=== PATIENT | male | born 1975 | race Caucasian/White ===

== ENCOUNTER 2017-10-29 07:22 | Emergency (ER) | payer OTHER ==
[2017-10-29 07:33] VITALS: BP 119/75; PULSE 65; TEMP 100.2; BMI 28.7
--- NOTE | 2017-10-29 07:45 | PDOC ---
History of Present Illness - General Chief Complaint: Sore Throat Stated Complaint: FEVER, SORE THROAT Time Seen by Provider: 10/29/17 07:45 - History of Present Illness Initial Comments: 42 year old previously healthy male presenting with two days of fever and three days on non-productive cough. Denies nausea, vomiting, but had had some diarrhea. Has no recent travel/ sick contacts but does have two teenage children at home. His PCP is Rusty Walter and he follows up with him regularly. 10/29/17 09:04 Past History - Past Medical History Allergies/Adverse Reactions: Allergies Allergy/AdvReac Type Severity Reaction Status Date / Time No Known Allergies Allergy Verified 10/29/17 07:27 Home Medications: Ambulatory Orders Phenol [Chloraseptic] 1 spray MM BID PRN #1 bottle 10/29/17 COPD: No - Suicide/Smoking/Psychosocial Hx Smoking History: Never smoked Review of Systems - Review of Systems Constitutional: Yes: Fever. No: Chills, Diaphoresis, Loss of Appetite Respiratory: No: Cough, Shortness of Breath Cardiac (ROS): No: Chest Pain, Edema, Irregular Heart Rate ABD/GI: Yes: Diarrhea. No: Nausea, Vomiting : No: Burning, Dysuria, Discharge Musculoskeletal: No: Gout, Joint Pain, Joint Swelling Integumentary: No: Change in Color, Change in Hair/Nails, Lumps, Pruritus, Rash Neurological: No: Headache, Numbness, Paresthesia Hematologic/Lymphatic: No: Anemia, Blood Clots, Easy Bleeding *Physical Exam - Vital Signs Last Vital Signs Temp Pulse Resp BP Pulse Ox 100.2 F H 65 18 119/75 99 10/29/17 07:25 10/29/17 07:25 10/29/17 07:25 10/29/17 07:25 10/29/17 07:25 - Physical Exam General Appearance: Yes: Nourished, Appropriately Dressed. No: Apparent Distress HEENT: positive: EOMI, ANDRIA, Pharyngeal Erythema. negative: Normal ENT Inspection, Normal Voice (Poor quality voice with erythematous posterio pharynx) Neck: positive: Trachea midline, Normal Thyroid, Supple. negative: Tender, Rigid Respiratory/Chest: positive: Lungs Clear, Normal Breath Sounds. negative: Chest Tender, Respiratory Distress, Accessory Muscle Use Cardiovascular: positive: Regular Rhythm, Regular Rate Gastrointestinal/Abdominal: positive: Normal Bowel Sounds, Flat, Soft. negative : Tender Musculoskeletal: positive: Normal Inspection. negative: Decreased Range of Motion, Muscle Spasm Extremity: positive: Normal Capillary Refill, Normal Inspection, Normal Range of Motion. negative: Tender Integumentary: positive: Normal Color, Dry, Warm Neurologic: positive: Fully Oriented, Alert, Normal Mood/Affect, Normal Response , Motor Strength 5/5 Medical Decision Making - Medical Decision Making 42 year old male with no PMH presenting with sore throat, fevers, diarrhea, and non-productive cough for the past few days without history of travel or sick contacts. His symptoms improved with magic mouth wash. CXR was clear and strep was negative. This is likely a viral infection of his upper respiratory tract without compromise of his airway. Will DC with chloroseptic spray use instructions and Tylenol. 10/29/17 09:08 *DC/Admit/Observation/Transfer Diagnosis at time of Disposition: URI (upper respiratory infection) Qualifiers: URI type: unspecified viral URI Qualified Code(s): J06.9 - Acute upper respiratory infection, unspecified - Discharge Dispostion Disposition: HOME Condition at time of disposition: Improved Decision to Admit order: No - Prescriptions Prescriptions: Phenol [Chloraseptic] 1 spray MM BID PRN #1 bottle PRN Reason: Sore Throat - Referrals Referrals: Dior Walter MD [Primary Care Provider] - - Patient Instructions Printed Discharge Instructions: DI for Viral Pharyngitis Additional Instructions: Your chest xray was fine and you did not have strep throat. Please follow up with your PCP within one week and return to the ED if you have any new or worsening symptoms. - Post Discharge Activity
[2017-10-29] MEDS ORDERED: MAG HYDROX/ALH/SMC/DPHA/LIDO 240 ML MOUTHWASH MM ONE (07:51)
[2017-10-29] MEDS ORDERED: ACETAMINOPHEN 500 MG TABLET (FP) PO ONE (07:52)
[2017-10-29] MEDS ORDERED: ACETAMINOPHEN 325 MG TABLET (FP) ONE (07:59)
--- NOTE | 2017-10-29 08:35 | PDOC ---
Attending Attestation - Resident Resident Name: Percy Cox - ED Attending Attestation I have performed the following: I have examined & evaluated the patient, The case was reviewed & discussed with the resident, I agree w/resident's findings & plan, Exceptions are as noted - HPI HPI: 10/29/17 08:32 42 yo M no pmhx here with c/o 3 days of sore throat, fever, mild cough, non productive. no sick contacts. no n/v no rash. no recent travel. pain with swallowing. took tylenol and motrin mild relief. - Physicial Exam PE: 10/29/17 08:34 awake alert lungs clear bilaterally. heart rrr no mrg. abd soft nt nd. ext wwp no edema. skin wwp no rash. HEENT. throat tonsil mild erythema. small white chancre left tonsil. no exudate. uvula midline. no stridor. - Medical Decision Making 10/29/17 08:35 differential: pna, viral uri, strept pharyngitis. laryngitis. plan fever control and pain control. cxr r/o pna, strept swab.
== END 2017-10-29 09:00 | disposition home or self-care (01) ==
LOC: JER 07:22
DX: J06.9 Acute upper respiratory infection, unspecified (principal); B97.89 Other viral agents as the cause of diseases classified elsewhere
CPT/HCPCS: 71046-TC-FY; 87070; 87430; 99281-25

== ENCOUNTER 2017-12-03 09:02 | Emergency (ER) | payer OTHER ==
[2017-12-03 09:06] VITALS: BP 131/74; PULSE 68; TEMP 100.1; BMI 28.2
[2017-12-03] MEDS ORDERED: IBUPROFEN 600 MG TABLET (FP) PO ONE ×2 (09:35→09:50)
--- NOTE | 2017-12-03 09:41 | PDOC ---
History of Present Illness - General Chief Complaint: Sore Throat Stated Complaint: SORE THROAT Time Seen by Provider: 12/03/17 09:14 History Source: Patient Exam Limitations: No Limitations - History of Present Illness Initial Comments: CHIEF COMPLAINT: 42 y/o febrile male c/o right ear ache and sore throat x 2 days. HISTORY OF PRESENT ILLNESS: The patient also admits to fever for the past few days, which he's been taking tylenol for. He states it's hard to swallow. He denies cough, runny nose, n/v/d, CP, SOB, abd pain, back pain and all other symptoms. Past History - Past Medical History Allergies/Adverse Reactions: Allergies Allergy/AdvReac Type Severity Reaction Status Date / Time No Known Allergies Allergy Verified 12/03/17 09:06 Home Medications: Ambulatory Orders Penicillin V Potassium [Pen Vee K -] 500 mg PO TID #30 tablet 12/03/17 COPD: No - Suicide/Smoking/Psychosocial Hx Smoking History: Never smoked Review of Systems - Review of Systems Able to Perform ROS?: Yes Constitutional: Yes: Fever. No: Chills HEENTM: Yes: Ear Pain, Throat Pain, Difficulty Swallowing. No: Ear Discharge, Nose Pain, Nose Congestion, Throat Swelling Respiratory: No: Symptoms reported Cardiac (ROS): No: Symptoms Reported ABD/GI: No: Symptoms Reported Neurological: No: Symptoms reported *Physical Exam - Vital Signs Last Vital Signs Temp Pulse Resp BP Pulse Ox 100.1 F H 68 18 131/74 99 12/03/17 09:03 12/03/17 09:03 12/03/17 09:03 12/03/17 09:03 12/03/17 09:03 - Physical Exam Comments: THe patient is ambulatory and well appearing. General Appearance: Yes: Nourished, Appropriately Dressed. No: Apparent Distress HEENT: positive: EOMI, ANDRIA, Tonsillar Exudate (on left tonsil), Tonsillar Erythema, Other (No trismus. Uvula midline. No soft/hard palate deformities.) . negative: Nasal Congestion, Rhinorrhea, Sinus Tenderness, TM Bulging, TM Erythema Neck: positive: Lymphadenopathy (R) (tender), Lymphadenopathy (L) (tender) Respiratory/Chest: positive: Lungs Clear, Normal Breath Sounds. 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 Will give PO motrin in the ER. Will discharge to home with rx for PCN. Patient refused bicillin injection. Instructed him to continue taking tylenol and motrin, gargle with warm salt water, drink lots of fluids and eat soft foods. Pt instructed to return to the ER with any worsening or concerning symptoms. The patient verbalizes understanding of all instructions, has no further questions and is awaiting discharge. *DC/Admit/Observation/Transfer Diagnosis at time of Disposition: Strep throat - Discharge Dispostion Disposition: HOME Condition at time of disposition: Good - Referrals Referrals: Dior Walter MD [Primary Care Provider] - - Patient Instructions Printed Discharge Instructions: DI for Strep Throat Additional Instructions: Discharge Instructions: -You have strep throat -A prescription for antibiotics has been sent to your pharmacy; please take entire 10 days -Please take 650mg of tylenol every 4 hours for fever -Take 600mg of Motrin every 6 hours with food for fever and pain -Gargle with warm salt water to help with pain -Eat soft/cold foods to help with pain -After 3 days of antibiotics please get a new toothbrush -Return to the ER with any worsening or concerning symptoms. Instrucciones de descarga: -Tienes estreptococo en la garganta -Lesly receta de antibiticos canada sido enviada a [place] farm[place]; por favor tome 10 connolly enteros -Por favor tome 650 mg de tylenol cada 4 horas para la fiebre - [place] 600 mg de Motrin cada 6 horas con alimentos para la fiebre y el dolor -Jugar con agua salada tibia para ayudar con el dolor -[place] alimentos blandos / fros para ayudar con el dolor - Despus de 3 connolly de antibiticos, obtenga un nuevo cepillo de dientes -Volver a la azar de emergencias con cualquier empeoramiento o sntomas. Print Language: SAO TOMEAN - Post Discharge Activity Forms/Work/School Notes: Back to Work
== END 2017-12-03 09:53 | disposition home or self-care (01) ==
LOC: JERFT 09:02
DX: J02.0 Streptococcal pharyngitis (principal); B95.5 Unspecified streptococcus as the cause of diseases classified elsewhere
CPT/HCPCS: 99281-25

== ENCOUNTER 2018-02-02 08:50 | Emergency (ER) | payer OTHER ==
[2018-02-02 08:57] VITALS: BP 116/72; PULSE 67; TEMP 98; BMI 25.8
--- NOTE | 2018-02-02 09:23 | PDOC ---
History of Present Illness - General Chief Complaint: Pain, Acute Stated Complaint: KNEE PAIN Time Seen by Provider: 02/02/18 09:01 History Source: Patient Exam Limitations: No Limitations - History of Present Illness Initial Comments: CHIEF COMPLAINT: 42 y/o male with no significant PMH c/o b/l knee pain after biking this . 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 He was biking this weekend and states on Tuesday his knees were sore. He states it's painful to go up and down the stairs and they are slightly swollen. He denies fall, trauma to knees, erythema, streaking, warmth. He has been taking 800mg of ibuprofen once a day for pain. Vital signs on arrival are within normal limits. REVIEW OF SYSTEMS: GENERAL/CONSTITUTIONAL: No fever/chills. No weakness. No weight change. MUSCULOSKELETAL: b/l knee pain. No neck or back pain. SKIN: No rash or easy bruising. NEUROLOGIC: No headache, vertigo, loss of consciousness, or loss of sensation. PHYSICAL EXAM: VITAL_SIGNS: within normal limits GENERAL_APPEARANCE: alert, cooperative, no obvious discomfort. Patient is ambulatory with normal gait. MENTAL_STATUS: speech clear, oriented X 3, responds appropriately to questions. NEURO: motor intact and sensory intact in injured extremity. EXTREMITIES: No obvious swelling to knees. No erythema, warmth or streaking to knees. Pain with palpation of b/l medial joint lines, indicative of medial meniscus issue. Negative Lachmann's sign b/l. No calf TTP, erythema or warmth. SKIN: warm, dry, good color. Past History - Past Medical History Allergies/Adverse Reactions: Allergies Allergy/AdvReac Type Severity Reaction Status Date / Time No Known Allergies Allergy Verified 12/03/17 09:06 Home Medications: Ambulatory Orders NK [No Known Home Medication] 02/02/18 COPD: No - Suicide/Smoking/Psychosocial Hx Smoking History: Never smoked *Physical Exam - Vital Signs Last Vital Signs Temp Pulse Resp BP Pulse Ox 98 F 67 16 116/72 98 02/02/18 08:55 02/02/18 08:55 02/02/18 08:55 02/02/18 08:55 02/02/18 08:55 Medical Decision Making - Medical Decision Making A/P: 42 y/o male with arthritis and possible medial meniscus tears in b/l knees. Will give AMILCAR bandages for both knees. SUggested Ibuprofen every 6 hours with food for pain/swelling and RICE instructions. Will provide a work note and ortho for follow up. The patient verbalizes understanding of all instructions, has no further questions and is awaiting discharge. *DC/Admit/Observation/Transfer Diagnosis at time of Disposition: Arthritis Meniscus, medial, derangement Qualifiers: Laterality: unspecified laterality Qualified Code(s): M23.305 - Other meniscus derangements, unspecified medial meniscus, unspecified knee - Discharge Dispostion Disposition: HOME Condition at time of disposition: Good - Referrals Referrals: Dior Walter MD [Primary Care Provider] - Hussein Bird MD [Staff Physician] - 1 week - Patient Instructions Printed Discharge Instructions: DI for Osteoarthritis, DI for Meniscal Tear, How To Perform RICE (Rest, Ice, Compress, Elevate) Additional Instructions: Discharge Instructions: -You have arthritis and possibly a meniscus tear -Please use AMILCAR bandage for comfort -Please follow RICE instructions to help with swelling and pain -Take 600mg-800mg of Ibuprofen every 6 hours for pain/swelling with food -Call Dr. Bird to schedule a follow up appointment Instrucciones de descarga: -Tienes artritis y posiblemente kaelyn rotura de menisco -Por favor use vendaje AMILCAR para mayor comodidad -Por favor, siga las instrucciones de RICE para ayudar con la hinchazn y el dolor [place] 600 mg-800 mg de ibuprofeno cada 6 horas para el dolor / hinchazn con comida Llame al Dr. Bird para programar kaelyn kristal de seguimiento Print Language: ECUADOREAN - Post Discharge Activity Forms/Work/School Notes: Back to Work
[2018-02-02] MEDS ORDERED: IBUPROFEN 600 MG TABLET (FP) PO ONE ×2 (09:24→09:26)
== END 2018-02-02 09:31 | disposition home or self-care (01) ==
LOC: JERFT 08:50
DX: M13.861 Other specified arthritis, right knee (principal); M13.862 Other specified arthritis, left knee; M23.331 Other meniscus derangements, other medial meniscus, right knee; M23.332 Other meniscus derangements, other medial meniscus, left knee; X50.3XXA Overexertion from repetitive movements, initial encounter; Y93.55 Activity, bike riding; Y92.89 Other specified places as the place of occurrence of the external cause; Y99.8 Other external cause status
CPT/HCPCS: 99281-25

== ENCOUNTER 2018-02-24 09:21 | Emergency (ER) | payer OTHER ==
[2018-02-24 09:25] VITALS: BP 119/78; PULSE 80; TEMP 98.1; BMI 25.8
--- NOTE | 2018-02-24 10:06 | PDOC ---
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 States is progressively worsened. Is using ibuprofen for pain relief with minimal resolved Occurred: reports: just prior to arrival Severity: reports: mild Pain Location: reports: upper extremity (left wrist) Modifying Factors: improves with: cold therapy Associated Symptoms (Fall): denies symptoms Past History - Travel Traveled outside of the country in the last 30 days: No Close contact w/someone who was outside of country & ill: No - Past Medical History Allergies/Adverse Reactions: Allergies Allergy/AdvReac Type Severity Reaction Status Date / Time No Known Allergies Allergy Verified 02/24/18 09:23 Home Medications: Ambulatory Orders NK [No Known Home Medication] 02/02/18 COPD: No - Suicide/Smoking/Psychosocial Hx Smoking History: Never smoked Review of Systems - Review of Systems Able to Perform ROS?: Yes Is the patient limited Romanian proficient: Yes Constitutional: Yes: See HPI. No: Symptoms Reported, Malaise HEENTM: No: Symptoms Reported Musculoskeletal: Yes: Symptoms Reported, See HPI, Joint Pain, Joint Swelling ( left wrist, ) *Physical Exam - Vital Signs Last Vital Signs Temp Pulse Resp BP Pulse Ox 98.1 F 80 16 119/78 99 02/24/18 09:21 02/24/18 09:21 02/24/18 09:21 02/24/18 09:21 02/24/18 09:21 - Physical Exam General Appearance: Yes: Nourished, Appropriately Dressed, Apparent Distress HEENT: positive: ANDRIA, Normal ENT Inspection, TMs Normal, Pharynx Normal Neck: positive: Supple. negative: Tender, Lymphadenopathy (R), Lymphadenopathy (L) Respiratory/Chest: positive: Lungs Clear, Normal Breath Sounds Gastrointestinal/Abdominal: positive: Soft Musculoskeletal: positive: Normal Inspection Extremity: positive: Normal Capillary Refill, Tender. 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 *DC/Admit/Observation/Transfer Diagnosis at time of Disposition: Sprain of wrist, left Qualifiers: Encounter type: initial encounter Qualified Code(s): S63.502A - Unspecified sprain of left wrist, initial encounter - Discharge Dispostion Disposition: HOME Condition at time of disposition: Stable Decision to Admit order: No - Referrals Referrals: ON STAFF,NOT [Primary Care Provider] - - Patient Instructions Printed Discharge Instructions: DI for Wrist Strain Additional Instructions: Rest, ice to area on and off for 15 minutes 4-6 times a day Avoid heavy lifting or exercise until pain and swelling is resolved or until further directed Keep area highly elevated to reduce swelling Use splints/Ronald wrap as directed Followup with orthopedist in one to 2 days if not improving, if significantly improved may wait one week for followup with orthopedist May use ibuprofen 2-200 mg tablets every 6 hours as needed for pain - Post Discharge Activity Forms/Work/School Notes: Back to Work
== END 2018-02-24 10:32 | disposition home or self-care (01) ==
LOC: JERFT 09:21
PROC: 2W3DX1Z Immobilization of Left Lower Arm using Splint (ICD-10-PCS; principal; 2018-02-24)
DX: S63.502A Unspecified sprain of left wrist, initial encounter (principal); X58.XXXA Exposure to other specified factors, initial encounter; Y93.89 Activity, other specified; Y92.9 Unspecified place or not applicable
CPT/HCPCS: 29125; 73110-TC-LR-FY; 99281-25